=== PATIENT | male | born 1970 | race Caucasian/White ===

== ENCOUNTER → 2017-05-24 14:47 | Outpatient (CLI) | payer BC, SELFPAY ==
[2017-05-24 17:41] LABS: Absolute Neutrophil Count 4.4 X10^3/uL (2.0-7.7); Basophil# 0.02 X10^3/uL; Basophil% 0.3 % (0-1); Eosinophil# 0.04 X10^3/uL; Eosinophils% 0.7 % (0-5); Hemoglobin 15.1 g/dl (13.0-16.5); Lymphocyte % 19.9 % (19-41); Mean Corp Hgb Conc 32.8 g/gl (32-36); Mean Corpuscular Hgb 29.9 pg (27.0-32.0); Mean Corpuscular Volume 91.1 fL (80-94); Mean Platelet Vol. 9.6 fl (6.2-12.0); Neutrophil # 4.44 X10^3/uL (2.7-7.7); Neutrophil % 73.8 % (47-70); Platelet Count 222 K/mm3 (150-450); RBC Distribution Width CV 13.3 % (11.6-14.6); RBC Distribution Width SD 43.6 fl (35.1-43.9); Red Blood Count 5.05 M/mm3 (4.6-6.2)
[2017-05-24 17:43] LABS: ALB/GLOB Ratio 1.3 RATIO (0.9-2.4); AST(SGOT) 12 U/L (15-37); Alanine Aminotransfer ALT/SGPT 36 U/L (16-61); Albumin, Serum 4.2 g/dL (3.2-5.0); Alkaline Phosphatase 89 U/L (45-117); Anion Gap 7 (5-15); BUN 18 mg/dL (7-18); BUN/Creat Ratio 13.7 RATIO (10-20); Calcium,Total 9.3 mg/dL (8.5-10.1); Chloride 106 mmol/L (98-107); Creatinine, Serum 1.31 mg/dL (0.70-1.30); EST Glomerular Filtration Rate 62 mL/min (>60); Est Glom Filt Rate - Afr Amer 75 mL/min (>60); Globulin 3.3 g/dL (2.2-4.2); Glucose 99 mg/dL (74-106); POSITIVE COUNT NO; POSITIVE DIFFERENTIAL NO; POSITIVE MORPHOLOGY NO; Potassium 4.3 mmol/L (3.5-5.1); Protein, Total 7.5 g/dL (6.4-8.2); Sodium Level 140 mmol/L (136-145)
== END ==
PROVIDERS: Visit Provider Internal Medicine Rheumatology
DX: M06.4 Inflammatory polyarthropathy (principal); K21.9 Gastro-esophageal reflux disease without esophagitis; I10 Essential (primary) hypertension; N20.0 Calculus of kidney; E78.5 Hyperlipidemia, unspecified; F41.9 Anxiety disorder, unspecified; E29.1 Testicular hypofunction
CPT/HCPCS: 36415; 80053; 85025

== ENCOUNTER → 2017-05-25 10:22 | Outpatient (CLI) | payer BC, SELFPAY ==
[2017-05-25 12:37] LABS: Anion Gap 6 (5-15); BUN 21 mg/dL (7-18); BUN/Creat Ratio 16.7 RATIO (10-20); Calcium,Total 8.7 mg/dL (8.5-10.1); Chloride 106 mmol/L (98-107); Cholesterol 233 mg/dL (200); Creatinine, Serum 1.26 mg/dL (0.70-1.30); EST Glomerular Filtration Rate 65 mL/min (>60); Est Glom Filt Rate - Afr Amer 78 mL/min (>60); Glucose 102 mg/dL (74-106); High Density Lipoprotein 27 mg/dL; Potassium 4.2 mmol/L (3.5-5.1); Sodium Level 140 mmol/L (136-145); Triglycerides 1179 mg/dL
[2017-05-25 13:05] LABS: Hemoglobin A1c 5.6 % (4.2-6.3)
== END ==
DX: N28.9 Disorder of kidney and ureter, unspecified (principal); E78.00 Pure hypercholesterolemia, unspecified; E11.9 Type 2 diabetes mellitus without complications; E29.1 Testicular hypofunction
CPT/HCPCS: 36415; 80048; 80061; 83036; 84403

== ENCOUNTER 2017-07-18 13:54 | Emergency (ER) | payer BC, SELFPAY ==
[2017-07-18 13:55] VITALS: BP 134/92; PULSE 99; RESP 18; TEMP 36.4; O2SAT 97; BMI 26.6
--- NOTE | 2017-07-18 14:20 | RAD_ITS ---
STUDY: X-RAY - RIGHT ELBOW REASON FOR EXAM: Male, 47 years old. Pain and injury. TECHNIQUE: 3 view(s) of the elbow. COMPARISON: None. FINDINGS: Normal visualized humerus, radius and ulna. Normal radiocapitellar and ulnotrochlear articulations. The soft tissue structures are unremarkable. There is no demonstrated fracture. RAD/Elbow min 3 Views IMPRESSION: Normal x-ray examination of the elbow. Electronically Signed: Trevor Magana MD at 15:02 EDT , Service support ,
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
--- NOTE | 2017-07-18 15:19 | ED.DEP ---
ED Disposition - Plan for ED Patient: Chief Complaint: Upper Extremity Injury Instructions: ED Sprain Elbow Prescriptions: Hydrocodone Bitart/Apap 5-325 [[place] 5MG-325MG] 1 tab PO Q6H PRN PRN 2 Days #8 tab PRN Reason: Pain Referrals: Gustabo Camacho [Primary Care Provider] - Julisa De Oliveira DO [STAFF PHYSICIAN] - As Needed
[2017-07-18 15:49] VITALS: BP 142/88; PULSE 81; RESP 18; O2SAT 100
== END 2017-07-18 15:55 | disposition home or self-care (01) ==
LOC: ED 15:48
PROVIDERS: Emergency Provider Emergency Medicine
DX: S46.811A Strain of other muscles, fascia and tendons at shoulder and upper arm level, right arm, initial encounter (principal); X50.0XXA Overexertion from strenuous movement or load, initial encounter; Y93.9 Activity, unspecified; Y92.9 Unspecified place or not applicable; M10.9 Gout, unspecified; M06.9 Rheumatoid arthritis, unspecified; Z79.899 Other long term (current) drug therapy
CPT/HCPCS: 73080; 99283

== ENCOUNTER → 2017-07-21 10:30 | Outpatient (CLI) | payer BC, SELFPAY ==
[2017-07-21 12:14] LABS: Absolute Lymphocyte Count 1.89 X10^3/ul (0.83-4.51); Absolute Neutrophil Count 4.3 X10^3/uL (2.0-7.7); Basophil# 0.02 X10^3/uL; Basophil% 0.3 % (0-1); Eosinophil# 0.13 X10^3/uL; Eosinophils% 1.9 % (0-5); Hematocrit 47.2 % (40-54); Hemoglobin 15.3 g/dl (13.0-16.5); Lymphocyte # 1.89 X10^3/ul (4.0); Lymphocyte % 27.6 % (19-41); Mean Corp Hgb Conc 32.4 g/gl (32-36); Mean Corpuscular Hgb 30.3 pg (27.0-32.0); Mean Corpuscular Volume 93.5 fL (80-94); Mean Platelet Vol. 9.5 fl (6.2-12.0); Monocyte# 0.47 X10^3/uL; Monocyte% 6.9 % (0-10); Neutrophil # 4.31 X10^3/uL (2.7-7.7); POSITIVE COUNT NO; POSITIVE DIFFERENTIAL NO; POSITIVE MORPHOLOGY NO; Platelet Count 193 K/mm3 (150-450); RBC Distribution Width CV 13.7 % (11.6-14.6); RBC Distribution Width SD 46.6 fl (35.1-43.9); Red Blood Count 5.05 M/mm3 (4.6-6.2); White Blood Count 6.8 K/mm3 (4.4-11.0)
[2017-07-21 12:39] LABS: ALB/GLOB Ratio 1.3 RATIO (0.9-2.4); AST(SGOT) 17 U/L (15-37); Alanine Aminotransfer ALT/SGPT 41 U/L (16-61); Albumin, Serum 4.1 g/dL (3.2-5.0); Alkaline Phosphatase 76 U/L (45-117); Anion Gap 6 (5-15); BUN 12 mg/dL (7-18); BUN/Creat Ratio 8.5 RATIO (10-20); Calcium,Total 8.6 mg/dL (8.5-10.1); Chloride 106 mmol/L (98-107); Creatinine, Serum 1.41 mg/dL (0.70-1.30); EST Glomerular Filtration Rate 57 mL/min (>60); Est Glom Filt Rate - Afr Amer 69 mL/min (>60); Globulin 3.2 g/dL (2.2-4.2); Glucose 105 mg/dL (74-106); Potassium 4.1 mmol/L (3.5-5.1); Protein, Total 7.3 g/dL (6.4-8.2); Sodium Level 140 mmol/L (136-145)
== END ==
PROVIDERS: Visit Provider Internal Medicine Rheumatology
DX: M06.4 Inflammatory polyarthropathy (principal); Z79.899 Other long term (current) drug therapy; K21.9 Gastro-esophageal reflux disease without esophagitis; I10 Essential (primary) hypertension; N20.0 Calculus of kidney; E78.5 Hyperlipidemia, unspecified; F41.9 Anxiety disorder, unspecified; E29.1 Testicular hypofunction
CPT/HCPCS: 36415; 80053; 85025

== ENCOUNTER 2017-07-28 06:31 | Day surgery (SDC) | payer BC, SELFPAY ==
[2017-07-28] VITALS (11 sets, daily range): BP systolic 145–171; BP diastolic 94–115; PULSE 69–86; RESP 14–20; TEMP 36.2–37.2; O2SAT 92–97; BMI 25.8
[2017-07-28] MEDS: amLODIPine 5 MG Tablet PO (07:35)
--- NOTE | 2017-07-28 08:54 | PCM.DC.ORTHO ---
Discharge Diet: No Restrictions Discharge Activity: May Not Drive May shower in (days): 1 - KEEP DRESSING CLEAN AND DRY May resume sexual activity in: No Restrictions Ice area for (Minutes): 20 - Ice area for 20 minutes each hour while awake Keep extremity elevated above heart level: Operative Extremity, Right Arm Call your doctor if your incision/area has: Continuous Slow Oozing, Sudden Increased Bleeding, Increased Pain/ Swelling, Increased Redness, Foul Smelling Discharge Call your doctor if you observe: Fever of 101 or Higher, Coldness, Increased Pain, Numbness or Tingling, Change in Color Suture Line Care: Avoid Pulling/Pushing Cleanse incision/area with: Keep Dressing Clean & Dry Allergies/Adverse Reactions: Allergies No Known Allergies Allergy (Verified 07/23/17 11:00) Medications to take at Discharge Allopurinol [Zyloprim] 300 mg PO DAILY 04/19/13 Amlodipine [Norvasc] 5 mg PO DAILY 04/19/13 Niacin 500 mg PO DAILY 04/19/13 [place]-3 Fatty Acids/Fish Oil [Fish Oil 1,000 mg Capsule] 2 each PO DAILY 04/19/13 Methotrexate 12.5 mg PO MO 07/18/17 Prednisone 5 mg PO DAILY 07/18/17 Garlic 1,000 mg PO DAILY 07/23/17 Magnesium 250 mg PO DAILY 07/23/17 Multivitamin [Multiple Vitamins] 1 each PO DAILY 07/23/17 Omeprazole [Prilosec] 20 mg PO DAILY PRN 07/23/17 Protein Supplement [Protein Powder] 454 gm PO DAILY 07/23/17 Oxycodone [Oxyir] 5 mg PO Q4H PRN PRN 7 Days #56 tablet 07/28/17 The following prescriptions were given: Oxycodone [Oxyir] 5 mg PO Q4H PRN PRN 7 Days #56 tablet PRN Reason: Severe Pain (-12/08) Please Follow Up With: Titi Gates, When: in 2 weeks
--- NOTE | 2017-07-28 08:57 | DCINST_ITS ---
Discharge Diet: No Restrictions Discharge Activity: May Not Drive May shower in (days): 1 - KEEP DRESSING CLEAN AND DRY May resume sexual activity in: No Restrictions Ice area for (Minutes): 20 - Ice area for 20 minutes each hour while awake Keep extremity elevated above heart level: Operative Extremity, Right Arm Call your doctor if your incision/area has: Continuous Slow Oozing, Sudden Increased Bleeding, Increased Pain/ Swelling, Increased Redness, Foul Smelling Discharge Call your doctor if you observe: Fever of 101 or Higher, Coldness, Increased Pain, Numbness or Tingling, Change in Color Suture Line Care: Avoid Pulling/Pushing Cleanse incision/area with: Keep Dressing Clean & Dry Allergies/Adverse Reactions: Allergies No Known Allergies Allergy (Verified 07/23/17 11:00) Medications to take at Discharge Allopurinol [Zyloprim] 300 mg PO DAILY 04/19/13 Amlodipine [Norvasc] 5 mg PO DAILY 04/19/13 Niacin 500 mg PO DAILY 04/19/13 [place]-3 Fatty Acids/Fish Oil [Fish Oil 1,000 mg Capsule] 2 each PO DAILY Methotrexate 12.5 mg PO MO 07/18/17 Prednisone 5 mg PO DAILY 07/18/17 Garlic 1,000 mg PO DAILY 07/23/17 Magnesium 250 mg PO DAILY 07/23/17 Multivitamin [Multiple Vitamins] 1 each PO DAILY 07/23/17 Omeprazole [Prilosec] 20 mg PO DAILY PRN 07/23/17 Protein Supplement [Protein Powder] 454 gm PO DAILY 07/23/17 Oxycodone [Oxyir] 5 mg PO Q4H PRN PRN 7 Days #56 tablet 07/28/17 The following prescriptions were given: Oxycodone [Oxyir] 5 mg PO Q4H PRN PRN 7 Days #56 tablet PRN Reason: Severe Pain (-12/08) Please Follow Up With: Titi Gates, When: in 2 weeks
--- NOTE | 2017-07-28 08:57 | PCM.OPRPT ---
Report of Operation Date of Procedure: 07/28/17 Pre-Operative Diagnosis: Distal biceps tendon rupture right elbow Post-Operative Diagnosis: Same Surgery/Procedure Performed:: Primary repair of distal biceps tendon right Description of Surgical Findings:: Rupture distal biceps tendon with retraction link fabric machine operator: Kasi Rogel Type of Anesthesia:: General/Regional Anesthesiologist: Paramjit Miles Estimated Blood Loss (mL): 25 Fluids Replaced: See anesthesia report Description of Procedure: Implants: Biomet toggle lock Surgical indications: Patient is a 47-year-old male who sustained a distal biceps tendon rupture while working at home. 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 He has elected to undergo the above procedure Procedure description: Patient was greeted in the preoperative area his right upper extremities marked with surgical marker. Patient is right-hand dominant. Patient was then taken to or suite to. After adequate anesthesia was obtained and airway was secured is placed in a supine position on the operating room table. A tourniquet was placed high on the arm however it was not utilized throughout the procedure the arm was then prepped and draped in usual sterile fashion. Surgical timeout was performed and surgery was commenced. A longitudinal incision was made approximately 2 cm distal to the cubital fossa. Blunt dissection was then carried out and anterior lateral cutaneous nerve the form was identified and protected. I did ligate venous structure that was in the surgical field with 2-0 silk. Once this was ligated I was unable to bluntly dissect down to the radial tuberosity. Biceps tendon was absent. I then digitally palpated into the cubital fossa and was able to feel the stump of the ruptured biceps tendon. I was unable to milk this to the surgical field and grabbed the distal aspect of the tendon with an Allis clamp. The distal end was then debrided and 2 provided sutures were then used to whipstitch the distal end. The implant was then attached to this and parked on the brachium for later implantation. Attention was then turned to the radial tuberosity once again. I did place pulmonary tractors both radially and ulnarly exposing the radial tuberosity. This was then debrided with Bovie cautery. Then placed a guidepin bicortically through the proximal aspect of the radius followed by a bicortical 4 mm cannulated drill bit in order to create the passing tunnel. The guidepin was then placed just proximal to this tunnel uni-cortically and a unicortical tunnel was created making an eccentric oblong type tunnel. This was then debrided with the Wes in order to connect these 2 tunnels. The implant was then placed on the ct technologist and placed through the bicortical tunnel and engage the posterior aspect of the radius. I then toggled the implant advancing the prepared biceps tendon into the tunnel. Proximally 4 mm of distal aspect of the tendon did advanced into the tunnel. This is a self locking system. The sutures were then trimmed and assessment of the repair was then performed. Excellent security was obtained. Wound was then irrigated and closed in layers. Physician radiology practitioner assistant was integral in all portions of this procedure. They assisted with positioning the patient, draping the extremity, holding retractors, closing the wound, and applying the dressing. This was all done under my direct supervision. The physician radiology practitioner assistant was essential for a successful, efficient surgery. Postop: Maintain splint for 2 weeks. Patient will be then placed in an iROM elbow brace locked at 90?. He will be permitted to initiate passive range of motion at that time as well as gentle active range of motion at 4 weeks. Isometric resistance exercises can be started at 6 weeks and progressive resistance exercises at 8 weeks. Patient will require the elbow brace until 6 weeks postoperatively - Admit VTE Documentation VTE Present on Admission: No VTE Mechan Device Prophylaxis: None VTE Pharm Prophylaxis ordered?: No Reason prophylaxis not ordered:: Procedure Not Indicated
--- NOTE | 2017-07-28 09:06 | OP.PCM_ITS ---
Report of Operation Date of Procedure: 07/28/17 Pre-Operative Diagnosis: Distal biceps tendon rupture right elbow Post-Operative Diagnosis: Same Surgery/Procedure Performed:: Primary repair of distal biceps tendon right Description of Surgical Findings:: Rupture distal biceps tendon with retraction mine analyst: Kasi Rogel Type of Anesthesia:: General/Regional Anesthesiologist: Paramjit Miles Estimated Blood Loss (mL): 25 Fluids Replaced: See anesthesia report Description of Procedure: Implants: Biomet toggle lock Surgical indications: Patient is a 47-year-old male who sustained a distal biceps tendon rupture while working at home. 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 He has elected to undergo the above procedure Procedure description: Patient was greeted in the preoperative area his right upper extremities marked with surgical marker. Patient is right-hand dominant. Patient was then taken to or suite to. After adequate anesthesia was obtained and airway was secured is placed in a supine position on the operating room table. A tourniquet was placed high on the arm however it was not utilized throughout the procedure the arm was then prepped and draped in usual sterile fashion. Surgical timeout was performed and surgery was commenced. A longitudinal incision was made approximately 2 cm distal to the cubital fossa. Blunt dissection was then carried out and anterior lateral cutaneous nerve the form was identified and protected. I did ligate venous structure that was in the surgical field with 2-0 silk. Once this was ligated I was unable to bluntly dissect down to the radial tuberosity. Biceps tendon was absent. I then digitally palpated into the cubital fossa and was able to feel the stump of the ruptured biceps tendon. I was unable to milk this to the surgical field and grabbed the distal aspect of the tendon with an Allis clamp. The distal end was then debrided and 2 provided sutures were then used to whipstitch the distal end. The implant was then attached to this and parked on the brachium for later implantation. Attention was then turned to the radial tuberosity once again. I did place pulmonary tractors both radially and ulnarly exposing the radial tuberosity. This was then debrided with Bovie cautery. Then placed a guidepin bicortically through the proximal aspect of the radius followed by a bicortical 4 mm cannulated drill bit in order to create the passing tunnel. The guidepin was then placed just proximal to this tunnel uni-cortically and a unicortical tunnel was created making an eccentric oblong type tunnel. This was then debrided with the Wes in order to connect these 2 tunnels. The implant was then placed on the dog races manager and placed through the bicortical tunnel and engage the posterior aspect of the radius. I then toggled the implant advancing the prepared biceps tendon into the tunnel. Proximally 4 mm of distal aspect of the tendon did advanced into the tunnel. This is a self locking system. The sutures were then trimmed and assessment of the repair was then performed. Excellent security was obtained. Wound was then irrigated and closed in layers. Physician food service assistant was integral in all portions of this procedure. They assisted with positioning the patient, draping the extremity, holding retractors , closing the wound, and applying the dressing. This was all done under my direct supervision. The physician food service assistant was essential for a successful, efficient surgery. Postop: Maintain splint for 2 weeks. Patient will be then placed in an iROM elbow brace locked at 90?. He will be permitted to initiate passive range of motion at that time as well as gentle active range of motion at 4 weeks. Isometric resistance exercises can be started at 6 weeks and progressive resistance exercises at 8 weeks. Patient will require the elbow brace until 6 weeks postoperatively - Admit VTE Documentation VTE Present on Admission: No VTE Mechan Device Prophylaxis: None VTE Pharm Prophylaxis ordered?: No Reason prophylaxis not ordered:: Procedure Not Indicated
[2017-07-28] MEDS: oxyCODONE 5 MG Tablet PO (11:17)
== END 2017-07-28 11:35 | disposition home or self-care (01) ==
LOC: SDC 06:32 → AC 06:33
PROVIDERS: Visit Provider Orthopaedic Surgery
PROC: (CPT 24341; principal; 2017-07-28 07:45)
DX: S46.211A Strain of muscle, fascia and tendon of other parts of biceps, right arm, initial encounter (principal); V28.0XXA Motorcycle driver injured in noncollision transport accident in nontraffic accident, initial encounter; Y93.9 Activity, unspecified; Y99.9 Unspecified external cause status; Y92.009 Unspecified place in unspecified non-institutional (private) residence as the place of occurrence of the external cause; I10 Essential (primary) hypertension; F17.200 Nicotine dependence, unspecified, uncomplicated; K21.9 Gastro-esophageal reflux disease without esophagitis; E78.00 Pure hypercholesterolemia, unspecified
CPT/HCPCS: 01810; 25275; 93005; C1713; J7120; J2405

== ENCOUNTER → 2017-12-06 08:46 | Outpatient (CLI) | payer BC, SELFPAY ==
[2017-12-06 10:21] LABS: Absolute Lymphocyte Count 1.68 X10^3/ul (0.83-4.51); Absolute Neutrophil Count 3.5 X10^3/uL (2.0-7.7); Basophil# 0.02 X10^3/uL; Basophil% 0.3 % (0-1); Eosinophil# 0.14 X10^3/uL; Eosinophils% 2.4 % (0-5); Hematocrit 45.2 % (40-54); Hemoglobin 14.5 g/dl (13.0-16.5); Lymphocyte # 1.68 X10^3/ul (4.0); Lymphocyte % 28.9 % (19-41); Mean Corp Hgb Conc 32.1 g/gl (32-36); Mean Corpuscular Hgb 29.4 pg (27.0-32.0); Mean Corpuscular Volume 91.7 fL (80-94); Mean Platelet Vol. 9.3 fl (6.2-12.0); Monocyte# 0.49 X10^3/uL; Monocyte% 8.4 % (0-10); Neutrophil # 3.47 X10^3/uL (2.7-7.7); Neutrophil % 59.8 % (47-70); Platelet Count 184 K/mm3 (150-450); RBC Distribution Width CV 12.9 % (11.6-14.6); RBC Distribution Width SD 42.9 fl (35.1-43.9); Red Blood Count 4.93 M/mm3 (4.6-6.2); White Blood Count 5.8 K/mm3 (4.4-11.0)
[2017-12-06 10:28] LABS: POSITIVE COUNT NO; POSITIVE DIFFERENTIAL NO; POSITIVE MORPHOLOGY NO
[2017-12-06 10:53] LABS: ALB/GLOB Ratio 1.3 RATIO (0.9-2.4); AST(SGOT) 21 U/L (15-37); Alanine Aminotransfer ALT/SGPT 84 U/L (16-61); Albumin, Serum 3.9 g/dL (3.2-5.0); Alkaline Phosphatase 111 U/L (45-117); Anion Gap 6 (5-15); BUN 18 mg/dL (7-18); Calcium,Total 9.2 mg/dL (8.5-10.1); Chloride 108 mmol/L (98-107); Creatinine, Serum 1.64 mg/dL (0.70-1.30); EST Glomerular Filtration Rate 48 mL/min (>60); Est Glom Filt Rate - Afr Amer 58 mL/min (>60); Globulin 3.1 g/dL (2.2-4.2); Glucose 111 mg/dL (74-106); Potassium 4.9 mmol/L (3.5-5.1); Sodium Level 141 mmol/L (136-145)
== END ==
PROVIDERS: Referring Provider Internal Medicine Rheumatology; Visit Provider Internal Medicine Rheumatology
DX: M06.4 Inflammatory polyarthropathy (principal); Z79.899 Other long term (current) drug therapy; K21.9 Gastro-esophageal reflux disease without esophagitis; I10 Essential (primary) hypertension; N20.0 Calculus of kidney; E78.5 Hyperlipidemia, unspecified; F41.9 Anxiety disorder, unspecified; E29.1 Testicular hypofunction
CPT/HCPCS: 36415; 80053; 85025

== ENCOUNTER → 2017-12-09 08:17 | Outpatient (CLI) | payer BC, SELFPAY ==
[2017-12-09 10:22] LABS: Color, Urine Yellow (Yellow); Glucose, Dipstick Normal (Normal); Ketone-Dipstick Negative (Negative); Leukocyte Esterase-Dipstick Negative /ul (Negative); Nitrite-Dipstick Negative (Negative); Occult Blood-Urine Negative /ul (Negative); Protein-Dipstick Negative (Negative); Urine Bilirubin Dipstick Negative (Negative); Urine Clarity Clear (Clear); Urine Urobilinogen Normal (Normal)
[2017-12-09 10:48] LABS: Cholesterol 154 mg/dL (200); High Density Lipoprotein 41 mg/dL; PSA,Total - Annual Screen 1.01 ng/mL (0.00-4.00); Triglycerides 262 mg/dL; Uric Acid 4.3 mg/dL (3.5-7.2); Very Low Density Lipoprotein 52 mg/dL (5-40)
[2017-12-09 10:58] LABS: Hemoglobin A1c 5.5 % (4.2-6.3)
[2017-12-14 14:07] LABS: Testosterone, Free 13.59 ng/dL (5.00-21.00)
[2017-12-17 08:07] LABS: Testosterone, % Free 4.02 % (1.50-4.20); Testosterone, Total 338 ng/dL (264-916)
== END ==
LOC: MTLAB 08:19
PROVIDERS: Referring Provider Family Medicine; Visit Provider Family Medicine
DX: Z00.00 Encounter for general adult medical examination without abnormal findings (principal); E78.1 Pure hyperglyceridemia; N28.9 Disorder of kidney and ureter, unspecified; E78.2 Mixed hyperlipidemia; M10.9 Gout, unspecified; E11.9 Type 2 diabetes mellitus without complications; I10 Essential (primary) hypertension; E29.1 Testicular hypofunction; Z12.5 Encounter for screening for malignant neoplasm of prostate
CPT/HCPCS: 36415; 80061; 81002; 83036; 84153; 84402; 84403; 84550; G0103

== ENCOUNTER → 2018-09-19 | Outpatient (CLI) | payer OTHER, SELFPAY ==
[2017-07-28 07:03] VITALS: BMI 25.8
--- NOTE | 2018-09-19 16:06 | RAD_ITS ---
STUDY: X-RAY CHEST REASON FOR EXAM: Male, 48 years old. Inflammatory polyarthropathy TECHNIQUE: Two view of the chest was performed COMPARISON: None. FINDINGS: Lungs are clear. There is no pneumothorax, pulmonary edema, pleural effusions or cardiomegaly. Osseous structures are intact. There is no gas under the diaphragms. [ ] RAD/Chest PA and Lateral IMPRESSION: 1. Unremarkable chest. 2. If evaluation of chronic lung disease in the setting of inflammatory arthropathy is desired dedicated CT of the chest with high-resolution pulmonary protocol is the study of choice. Plain films underestimate early presence of disease. Electronically Signed: Addi Neal, at 18:58 EDT Tel , Service support ,
[2018-09-19 17:43] LABS: Absolute Lymphocyte Count 0.77 X10^3/uL (0.83-4.51); Absolute Neutrophil Count 5.8 X10^3/uL (2.0-7.7); Basophil# 0.01 X10^3/uL; Basophil% 0.1 % (0-1); Hematocrit 38.2 % (40-54); Hemoglobin 12.7 g/dL (13.0-16.5); Lymphocyte # 0.77 X10^3/ul (4.0); Lymphocyte % 11.4 % (19-41); Mean Corp Hgb Conc 33.2 g/dL (32-36); Mean Corpuscular Hgb 30.8 pg (27.0-32.0); Mean Corpuscular Volume 92.7 fL (80-94); Mean Platelet Vol. 9.5 fl (6.2-12.0); Monocyte# 0.18 X10^3/uL; Monocyte% 2.7 % (0-10); NRBC Flagged by Analyzer 0 % (0-5); Neutrophil # 5.79 X10^3/uL (2.7-7.7); Neutrophil % 85.4 % (47-70); Platelet Count 199 K/mm3 (150-450); RBC Distribution Width CV 13.3 % (11.6-14.6); RBC Distribution Width SD 45.1 fl (35.1-43.9); Red Blood Count 4.12 M/mm3 (4.6-6.2); White Blood Count 6.8 K/mm3 (4.4-11.0)
[2018-09-19 18:01] LABS: Erythrocyte Sedimentation Rate 3 mm/hr (0-15)
[2018-09-19 18:14] LABS: Albumin, Serum 4.2 g/dL (3.2-5.0); BUN 25 mg/dL (7-18); BUN/Creat Ratio 15.3 RATIO (10-20); Creatinine, Serum 1.63 mg/dL (0.70-1.30); EST Glomerular Filtration Rate 48 mL/min (>60); Est Glom Filt Rate - Afr Amer 58 mL/min (>60); Globulin 2.9 g/dL (2.2-4.2); Glucose 114 mg/dL (74-106); Protein, Total 7.1 g/dL (6.4-8.2)
[2018-09-19 18:15] LABS: ALB/GLOB Ratio 1.4 RATIO (0.9-2.4); AST(SGOT) 13 U/L (15-37); Alanine Aminotransfer ALT/SGPT 37 U/L (16-61); Alkaline Phosphatase 54 U/L (45-117); Anion Gap 10 (5-15); CRP < 2.90 mg/L (0.0-3.0); Chloride 109 mmol/L (98-107); Potassium 4.4 mmol/L (3.5-5.1); Sodium Level 142 mmol/L (136-145)
[2018-09-21 16:02] LABS: QNTFERON TB Mitogen Value > 10.00 IU/mL (.); QNTFERON TB Nil Value 0.02 IU/mL (.); QNTFERON TB1+ Ag Value 0.02 IU/mL (.); QNTFERON TB2+ Ag Value 0.02 IU/mL (.)
[2018-09-21 16:08] LABS: QNTIFERON TB Positive Criteria Negative (Negative)
== END | disposition home or self-care (01) ==
LOC: MTLAB 16:05
PROVIDERS: Referring Provider Internal Medicine Rheumatology; Visit Provider Internal Medicine Rheumatology
DX: M06.4 Inflammatory polyarthropathy (principal); Z79.899 Other long term (current) drug therapy; K21.9 Gastro-esophageal reflux disease without esophagitis; I10 Essential (primary) hypertension; N20.0 Calculus of kidney; E78.5 Hyperlipidemia, unspecified; F41.9 Anxiety disorder, unspecified; E29.1 Testicular hypofunction
CPT/HCPCS: 36415; 71046; 80053; 85025; 85652; 86140; 86480

== ENCOUNTER → 2018-10-26 | Outpatient (CLI) | payer OTHER, SELFPAY ==
[2017-07-28 07:03] VITALS: BMI 25.8
[2018-10-26 14:11] LABS: Absolute Lymphocyte Count 1.87 X10^3/uL (0.83-4.51); Absolute Neutrophil Count 2.9 X10^3/uL (2.0-7.7); Basophil# 0.02 X10^3/uL; Basophil% 0.4 % (0-1); Eosinophil# 0.06 X10^3/uL; Eosinophils% 1.1 % (0-5); Hemoglobin 13.7 g/dL (13.0-16.5); Lymphocyte # 1.87 X10^3/ul (4.0); Lymphocyte % 34.6 % (19-41); Mean Corp Hgb Conc 34.3 g/dL (32-36); Mean Corpuscular Hgb 31.1 pg (27.0-32.0); Mean Corpuscular Volume 90.9 fL (80-94); Mean Platelet Vol. 9.4 fl (6.2-12.0); Monocyte# 0.55 X10^3/uL; Monocyte% 10.2 % (0-10); NRBC Flagged by Analyzer 0 % (0-5); Neutrophil # 2.89 X10^3/uL (2.7-7.7); Neutrophil % 53.3 % (47-70); Platelet Count 200 K/mm3 (150-450); RBC Distribution Width CV 12.4 % (11.6-14.6); RBC Distribution Width SD 41.2 fl (35.1-43.9); White Blood Count 5.4 K/mm3 (4.4-11.0)
[2018-10-26 14:38] LABS: ALB/GLOB Ratio 1.2 RATIO (0.9-2.4); AST(SGOT) 19 U/L (15-37); Alanine Aminotransfer ALT/SGPT 44 U/L (16-61); Albumin, Serum 3.9 g/dL (3.2-5.0); Alkaline Phosphatase 70 U/L (45-117); Anion Gap 5 (5-15); BUN 25 mg/dL (7-18); BUN/Creat Ratio 15.5 RATIO (10-20); Calcium,Total 8.9 mg/dL (8.5-10.1); Chloride 111 mmol/L (98-107); Creatinine, Serum 1.61 mg/dL (0.70-1.30); EST Glomerular Filtration Rate 49 mL/min (>60); Est Glom Filt Rate - Afr Amer 59 mL/min (>60); Globulin 3.2 g/dL (2.2-4.2); Glucose 77 mg/dL (74-106); Potassium 3.7 mmol/L (3.5-5.1); Protein, Total 7.1 g/dL (6.4-8.2); Sodium Level 143 mmol/L (136-145)
== END | disposition home or self-care (01) ==
LOC: MTLAB 11:46
PROVIDERS: Referring Provider Internal Medicine Rheumatology; Visit Provider Internal Medicine Rheumatology
DX: M06.09 Rheumatoid arthritis without rheumatoid factor, multiple sites (principal); Z79.899 Other long term (current) drug therapy; K21.9 Gastro-esophageal reflux disease without esophagitis; I10 Essential (primary) hypertension; N20.0 Calculus of kidney; E78.5 Hyperlipidemia, unspecified; F41.9 Anxiety disorder, unspecified; E29.1 Testicular hypofunction
CPT/HCPCS: 36415; 80053; 85025

== ENCOUNTER → 2018-11-17 12:52 | Outpatient (CLI) | payer OTHER, SELFPAY ==
[2018-11-17 13:59] LABS: Color, Urine Yellow (Yellow); Glucose, Dipstick Normal (Normal); Ketone-Dipstick Negative (Negative); Leukocyte Esterase-Dipstick Negative /ul (Negative); Nitrite-Dipstick Negative (Negative); Occult Blood-Urine Negative /ul (Negative); Protein-Dipstick 15 mg/dl (Negative); Specific Gravity, Urine 1.015 (1.002-1.030); Urine Bilirubin Dipstick Negative (Negative); Urine Clarity Clear (Clear); Urine Urobilinogen Normal (Normal)
[2018-11-17 14:18] LABS: Absolute Lymphocyte Count 1.61 X10^3/uL (0.83-4.51); Absolute Neutrophil Count 3.1 X10^3/uL (2.0-7.7); Basophil# 0.03 X10^3/uL; Basophil% 0.6 % (0-1); Eosinophil# 0.09 X10^3/uL; Eosinophils% 1.7 % (0-5); Hematocrit 43.6 % (40-54); Hemoglobin 14.7 g/dL (13.0-16.5); Lymphocyte # 1.61 X10^3/ul (4.0); Lymphocyte % 30.2 % (19-41); Mean Corp Hgb Conc 33.7 g/dL (32-36); Mean Corpuscular Hgb 30.9 pg (27.0-32.0); Mean Corpuscular Volume 91.6 fL (80-94); Mean Platelet Vol. 9.4 fl (6.2-12.0); Monocyte% 9.4 % (0-10); NRBC Flagged by Analyzer 0 % (0-5); Neutrophil # 3.09 X10^3/uL (2.7-7.7); Neutrophil % 57.9 % (47-70); Platelet Count 206 K/mm3 (150-450); RBC Distribution Width CV 12.4 % (11.6-14.6); RBC Distribution Width SD 42.2 fl (35.1-43.9); Red Blood Count 4.76 M/mm3 (4.6-6.2); White Blood Count 5.3 K/mm3 (4.4-11.0)
[2018-11-17 15:05] LABS: ALB/GLOB Ratio 1.3 RATIO (0.9-2.4); AST(SGOT) 30 U/L (15-37); Alanine Aminotransfer ALT/SGPT 57 U/L (16-61); Albumin, Serum 4.2 g/dL (3.2-5.0); Alkaline Phosphatase 59 U/L (45-117); Anion Gap 8 (5-15); BUN 24 mg/dL (7-18); BUN/Creat Ratio 14.9 RATIO (10-20); Calcium,Total 9.1 mg/dL (8.5-10.1); Chloride 110 mmol/L (98-107); Cholesterol 170 mg/dL (200); Creatinine, Serum 1.61 mg/dL (0.70-1.30); EST Glomerular Filtration Rate 49 mL/min (>60); Est Glom Filt Rate - Afr Amer 59 mL/min (>60); Globulin 3.2 g/dL (2.2-4.2); Glucose 99 mg/dL (74-106); High Density Lipoprotein 38 mg/dL; Potassium 4.4 mmol/L (3.5-5.1); Protein, Total 7.4 g/dL (6.4-8.2); Sodium Level 142 mmol/L (136-145); Triglycerides 262 mg/dL; Uric Acid 7.6 mg/dL (3.5-7.2); Very Low Density Lipoprotein 52 mg/dL (5-40)
[2018-11-21 13:09] LABS: Testosterone, Free 10.66 ng/dL (5.00-21.00)
[2018-11-22 17:09] LABS: Testosterone, % Free 3.25 % (1.50-4.20); Testosterone, Total 328 ng/dL (264-916)
== END ==
PROVIDERS: Referring Provider Family Medicine; Visit Provider Family Medicine
DX: Z00.00 Encounter for general adult medical examination without abnormal findings (principal); E78.1 Pure hyperglyceridemia; M13.0 Polyarthritis, unspecified; N28.9 Disorder of kidney and ureter, unspecified; E78.2 Mixed hyperlipidemia; E11.9 Type 2 diabetes mellitus without complications; I10 Essential (primary) hypertension; E29.1 Testicular hypofunction
CPT/HCPCS: 36415; 80053; 80061; 81002; 83036; 84402; 84403; 84550; 85025

== ENCOUNTER 2021-03-10 16:17 | Outpatient (CLI) | payer OTHER, SELFPAY ==
[2021-03-10 17:06] LABS: ALB/GLOB Ratio 1.3 RATIO (0.9-2.4); AST(SGOT) 15 U/L (15-37); Alanine Aminotransfer ALT/SGPT 53 U/L (16-61); Albumin, Serum 4.5 g/dL (3.2-5.0); Alkaline Phosphatase 66 U/L (45-117); Anion Gap 5 (5-15); BUN 25 mg/dL (7-18); BUN/Creat Ratio 14.2 RATIO (10-20); Calcium,Total 9.5 mg/dL (8.5-10.1); Chloride 109 mmol/L (98-107); Cholesterol 189 mg/dL (200); Creatinine, Serum 1.76 mg/dL (0.70-1.30); EST Glomerular Filtration Rate 43 mL/min (>60); Est Glom Filt Rate - Afr Amer 53 mL/min (>60); Globulin 3.4 g/dL (2.2-4.2); Glucose 109 mg/dL (74-106); High Density Lipoprotein 41 mg/dL; Potassium 4.3 mmol/L (3.5-5.1); Protein, Total 7.9 g/dL (6.4-8.2); Sodium Level 140 mmol/L (136-145); Triglycerides 448 mg/dL
[2021-03-10 17:15] LABS: Hemoglobin A1c 6.5 % (3.8-5.6)
== END 2021-03-10 23:59 | disposition short-term general hospital (02) ==
PROVIDERS: Visit Provider Family Medicine
DX: I10 Essential (primary) hypertension (principal); E11.9 Type 2 diabetes mellitus without complications; N28.9 Disorder of kidney and ureter, unspecified; E78.2 Mixed hyperlipidemia
CPT/HCPCS: 36415; 80053; 80061; 83036